=== PATIENT | female | born 1995 | race Caucasian/White ===

== ENCOUNTER 2019-02-01 08:44 | Emergency (ER) | payer MEDICAID, OTHER ==
--- NOTE | 2019-02-01 09:53 | UC ---
UC General HPI - HPI Summary HPI Summary: 24 yo female c/o progressive increase feeling ill over the last 2-3 days. Started with sore throat, resolved. Unk fever / chills. No rash. + n/v today , unable to keep down fluids. Minimal cough. Last po apples last night. No diarrhea. No hemetemesis. No brbrp / melena. - History of Current Complaint Chief Complaint: UCGeneralIllness Stated Complaint: FLU LIKE SYMPTOMS Time Seen by Provider: 02/01/19 09:41 Hx Obtained From: Patient Hx Last Menstrual Period: 01/18/19 Pain Intensity: 8 - Allergy/Home Medications Allergies/Adverse Reactions: Allergies Allergy/AdvReac Type Severity Reaction Status Date / Time amoxicillin Allergy Hives Verified 02/01/19 08:58 Home Medications: Home Medications NK [No Home Medications Reported] 02/01/19 [History Confirmed 02/01/19] PMH/Surg Hx/FS Hx/Imm Hx Previously Healthy: Yes - Surgical History Surgical History: None - Family History Known Family History: Positive: None, Non-Contributory - Social History Alcohol Use: Occasionally Substance Use Type: None Smoking Status (MU): Never Smoked Tobacco Review of Systems All Other Systems Reviewed And Are Negative: Yes Constitutional: Positive: Fatigue Skin: Positive: Negative Eyes: Positive: Negative ENT: Positive: Other - see hpi Respiratory: Positive: Other - see hpi Cardiovascular: Positive: Negative Gastrointestinal: Positive: Other - see hpi Genitourinary: Positive: Negative Motor: Positive: Other - see hpi Neurovascular: Positive: Negative Musculoskeletal: Positive: Negative Neurological: Positive: Negative Psychological: Positive: Negative Is Patient Immunocompromised?: No Physical Exam Triage Information Reviewed: Yes Appearance: Well-Nourished, Ill-Appearing Vital Signs: Initial Vital Signs Temp 98.4 F 02/01/19 08:54 Pulse 88 02/01/19 08:54 Resp 20 02/01/19 08:54 BP 107/63 02/01/19 08:54 Pulse Ox 99 02/01/19 08:54 Vital Signs Reviewed: Yes Eye Exam: Normal ENT: Positive: Pharynx normal, TM dull Neck exam: Normal Neck: Positive: Supple, Nontender, No Lymphadenopathy Respiratory Exam: Normal Respiratory: Positive: Chest non-tender, Lungs clear, Normal breath sounds, No respiratory distress, No accessory muscle use Cardiovascular Exam: Normal Cardiovascular: Positive: RRR, No Murmur, Pulses Normal, Brisk Capillary Refill Abdominal Exam: Other - + inc bs. Soft nd / nt / no hsm appreciated. No cvat Musculoskeletal Exam: Normal Neurological Exam: Normal Psychological Exam: Normal Skin Exam: Normal - no visible or reported rash. Nondiaphoretic. Course/Dx - Course Course Of Treatment: IV NS 1 liter with zofran 4mg iv -> feels better. Reviewed coa / tx plan. Reviewed urine dip with pt. Questions answered as posed to the best of my ability. Blood work pending. - Diagnoses Provider Diagnosis: Dehydration, Nausea & vomiting Discharge ED - Sign-Out/Discharge Documenting (check all that apply): Patient Departure All imaging exams completed and their final reports reviewed: No Studies - Discharge Plan Condition: Improved Disposition: HOME Patient Education Materials: Dehydration (ED), Acute Nausea and Vomiting (ED) Forms: *Work Release Referrals: [facility] – [place] [facility]FERRAL [Outside] No Primary Care Phys,NOPCP [Primary Care Provider] - Additional Instructions: Follow up with your primary care physician, as soon as you are able. Please have your urine rechecked when you are feeling better to make sure no microscopic blood. Hydrate. Please seek medical attention for worse / new / unresolved problems. - Billing Disposition and Condition Condition: IMPROVED Disposition: Home
[2019-02-01] MEDS ORDERED: Ondansetron INJ* 2 MG/ML VIAL IV ONE (09:55)
[2019-02-01] MEDS ORDERED: NS 0.9% 1000 ML** 1,000 ML IV ONE (09:56)
[2019-02-01 10:18] LABS: Influenza A Molecular NEGATIVE (Negative); Influenza B Molecular NEGATIVE (Negative)
[2019-02-01] MEDS ORDERED: Ondansetron ODT TAB* 4 MG PO ONE (11:48)
[2019-02-01 14:51] LABS: ABS Lymphocytes 0.8 10^3/ul (1.0-4.8); ABS Monocytes 0.3 10^3/ul (0-0.8); ABS Neutrophils 6.3 10^3/ul (1.5-7.7); Eosinophil % 0.2 %; Hematocrit 39 % (35-47); Hemoglobin 13.3 g/dL (12.0-16.0); Lymphocyte % 10.3 %; Mean Corpuscular HGB Conc 34 g/dL (31-36); Mean Corpuscular Hemoglobin 30 pg (27-31); Mean Corpuscular Volume 88 fL (80-97); Platelet Count 234 10^3/uL (150-450); Red Blood Count 4.49 10^6 /uL (3.70-4.87); Red Cell Distribution Width 13 % (10-15); White Blood Count 7.4 10^3/uL (3.5-10.8)
[2019-02-01 15:05] LABS: Albumin 4.6 g/dL (3.2-5.2); Albumin/Globulin Ratio 1.8 (1-3); BUN/Creatinine Ratio 16.7 (8-20); Calcium 9.6 mg/dL (8.6-10.3); EGFR Non-African American 108.3 (>60); Globulin 2.6 g/dL (2-4); Potassium 3.9 mmol/L (3.5-5.0); Total Bilirubin 0.4 mg/dL (0.2-1.0); Total Protein 7.2 g/dL (6.4-8.9)
== END 2019-02-01 12:00 | disposition home or self-care (01) ==
LOC: UCEAST 08:44
DX: E86.0 Dehydration (principal); R11.2 Nausea with vomiting, unspecified; R05 Cough; Z88.0 Allergy status to penicillin
CPT/HCPCS: 36415; 80053; 81003; 85025; 96360; 96374; 99202; A9270-GY; G0463; J2405